=== PATIENT | male | born 1990 | race Two or more races ===

== ENCOUNTER 2022-04-20 14:15 | Emergency (ER) | payer MEDICAID, OTHER ==
[~2022-04-20] VITALS: Ht 182.9 cm; Wt 118.0 kg
[2022-04-20 14:30] VITALS: BP 118/96
[2022-04-20] MEDS ORDERED: KETOROLAC TROMETH 60MG/2ML VIAL IM ONE (20:45)
[2022-04-20] MEDS ORDERED: ACE3T PO (20:49)
[2022-04-20] MEDS ORDERED: CYCL-837 PO (20:49)
== END 2022-04-20 21:57 | disposition home or self-care (01) ==
LOC: EDBD 14:15 → ER 14:15
DX: S39.012A Strain of muscle, fascia and tendon of lower back, initial encounter (principal); X50.9XXA Other and unspecified overexertion or strenuous movements or postures, initial encounter; Y93.89 Activity, other specified; Y92.89 Other specified places as the place of occurrence of the external cause; Y99.8 Other external cause status
CPT/HCPCS: J1885